=== PATIENT | female | born 2000 | race Hispanic/Latino ===

== ENCOUNTER 2022-04-22 08:34 | Outpatient (CLI) | payer OTHER | END 2022-04-22 08:35 | disposition home or self-care (01) | LOC: CSHLAB 08:34 | PROVIDERS: ATTEND Family Medicine | DX: Z20.822 Contact with and (suspected) exposure to COVID-19 (principal) | CPT/HCPCS: 87811 ==

== ENCOUNTER 2022-04-23 16:00 | Inpatient (IN) | payer MEDICAID, OTHER, SELFPAY ==
[2022-04-23] MEDS ORDERED: Ondansetron PF 4 MG/2 ML Vial IVP PRN (16:36)
[2022-04-23] MEDS ORDERED: Carboprost 250 MCG/ML AMP IM PRN (16:36)
[2022-04-23] MEDS ORDERED: hydrALAZINE 20 MG/ML VIAL SLOW IVP PRN (16:36)
[2022-04-23] MEDS ORDERED: Diphenoxylate HCl/Atropine Tablet PO PRN (16:36)
[2022-04-23] MEDS ORDERED: Lidocaine 1% (PF) 30 ML VIAL SC PRN (16:36)
[2022-04-23] MEDS ORDERED: Misoprostol 200 MCG TAB PR PRN (16:36)
[2022-04-23] MEDS ORDERED: Methylergonovine 0.2 MG/ML VIAL IM PRN (16:36)
[2022-04-23] MEDS ORDERED: Promethazine HCl 25 MG/ML VIAL IM PRN (16:36)
[2022-04-23] MEDS ORDERED: Penicillin G Potassium 5 MILL.UNITS in Sodium Chloride 0.9% 100 ML IVPB SCH (16:45)
[2022-04-23] MEDS ORDERED: NS w/ Oxytocin 30 units 500 ML IV SCH ×2 (16:45)
[2022-04-23 17:11] VITALS: BMI 33.2
[2022-04-23 17:12] LABS: Hemoglobin 11.9 g/dL (12.0-15.5); Mean Corpuscular HGB CONC 33.9 g/dL (32.0-36.0); Mean Corpuscular Hemoglobin 30.6 pg (27.0-33.0); Mean Corpuscular Volume 90.2 fl (81.6-98.3); Mean Platelet Volume 11.7 fl (7.4-10.4); Platelet Count 188 10x3/uL (150-450); RBC Distribution Width 14.3 % (11.5-14.5); Red Blood Cell (RBC) Count 3.89 10x6/uL (3.90-5.03); White Blood Cell (WBC) Count 8.4 10x3/uL (3.5-10.5)
[2022-04-23 17:21] LABS: Glucose 75 mg/dL (70-105)
[2022-04-23 17:42] LABS: Hep B Surf Ag Non-Reactive S/CO (NonReactive); Syphilis Antibody Nonreactive (Nonreactive); Syphilis Antibody Index 0.03 S/CO (<1.00 Non-Reactive)
[2022-04-23 17:43] LABS: HBSAg Index 0.21 S/CO (0-0.99)
[2022-04-23] MEDS ORDERED: Misoprostol 100 MCG TAB ONE (20:54)
[2022-04-24] MEDS: Penicillin G 2.5 MILL.units 2.5 MILL.UNITS in Premix Bag 1 BAG IVPB SCH ×2 (10:18→10:19)
[2022-04-24] MEDS: Lactated Ringer's 1,000 ML IV SCH (10:18)
[2022-04-24] MEDS ORDERED: diphenhydrAMINE 25 MG CAP PO PRN (11:21)
[2022-04-24] MEDS ORDERED: HYDROcodone/Acetaminophen 5/325 mg Tablet PO PRN ×2 (11:21)
[2022-04-24] MEDS ORDERED: Benzocaine-Menthol 82.5 ML CAN TOP PRN (11:21)
[2022-04-24] MEDS ORDERED: Ondansetron PF 4 MG/2 ML Vial IVP PRN (11:21)
[2022-04-24] MEDS ORDERED: NS w/ Oxytocin 30 units 500 ML IV SCH (11:21)
[2022-04-24] MEDS ORDERED: Boostrix 0.5 ML (Tdap) VIAL IM ONE (11:21)
[2022-04-24] MEDS ORDERED: Bisacodyl 10 MG SUPP PR PRN (11:21)
[2022-04-24] MEDS ORDERED: hydrALAZINE 20 MG/ML VIAL SLOW IVP PRN (11:21)
[2022-04-24] MEDS ORDERED: Promethazine HCl 25 MG/ML VIAL IM PRN (11:21)
[2022-04-24] MEDS ORDERED: Lanolin Ointment 7 GM TUBE TOP PRN (11:21)
[2022-04-24] MEDS ORDERED: Milk Of Magnesia 30 ML UDCUP PO PRN (11:21)
[2022-04-24] MEDS: Ibuprofen 800 MG TAB PO SCH ×2 (15:06→21:51)
[2022-04-24] MEDS: Ferrous Sulfate 325 MG TAB PO SCH (18:32)
[2022-04-24] MEDS: Docusate 100 MG CAP PO SCH (21:51)
[2022-04-25] MEDS: Ibuprofen 800 MG TAB PO SCH ×3 (05:36→21:54)
[2022-04-25] MEDS: Ferrous Sulfate 325 MG TAB PO SCH ×2 (07:31→07:32)
[2022-04-25] MEDS: Docusate 100 MG CAP PO SCH ×2 (08:25→21:54)
[2022-04-25] MEDS: Prenatal Vitamin 1 TAB PO SCH (08:25)
[2022-04-26] MEDS: Ibuprofen 800 MG TAB PO SCH ×2 (05:37→13:34)
[2022-04-26 07:34] VITALS: BP 120/67; TEMP 98.1
[2022-04-26] MEDS: Ferrous Sulfate 325 MG TAB PO SCH (07:51)
[2022-04-26] MEDS: Prenatal Vitamin 1 TAB PO SCH (08:07)
[2022-04-26] MEDS: Docusate 100 MG CAP PO SCH (08:07)
== END 2022-04-26 18:05 | disposition home or self-care (01) | DRG 806 ==
LOC: CSHLD/OP 16:00 → CSHLD 04-24 06:53 → CSHPP 04-24 13:42
PROVIDERS: ADMIT Family Medicine; ATTEND Family Medicine
PROC: 10E0XZZ Delivery of Products of Conception, External Approach (ICD-10-PCS; principal; 2022-04-24)
PROC: 0KQM0ZZ Repair Perineum Muscle, Open Approach (ICD-10-PCS; 2022-04-24)
DX: O42.02 Full-term premature rupture of membranes, onset of labor within 24 hours of rupture (principal); O98.52 Other viral diseases complicating childbirth; Z37.0 Single live birth; Z3A.39 39 weeks gestation of pregnancy; Z20.822 Contact with and (suspected) exposure to COVID-19; B00.9 Herpesviral infection, unspecified; Z79.899 Other long term (current) drug therapy; O24.420 Gestational diabetes mellitus in childbirth, diet controlled; O70.1 Second degree perineal laceration during delivery
CPT/HCPCS: 36415; 82947; 85027; 86780; 86850; 86900; 86901; 87340; J2001; J2590